=== PATIENT | female | born 1995 | race Caucasian/White ===

== ENCOUNTER 2018-06-04 20:20 | Emergency (ER) | payer BC ==
[~2018-06-04] VITALS: Ht 157.5 cm; Wt 47.0 kg
[2018-06-04 20:22] VITALS: Ht 157.5 cm; Wt 47.0 kg
[2018-06-04] MEDS ORDERED: KETOROLAC 15 MG INJ IV STA (21:48)
[2018-06-04] MEDS ORDERED: SOD CHLORIDE 0.9% 1,000 ML IV STA (21:48)
[2018-06-04] MEDS ORDERED: ONDANSETRON 4 MG INJ IV STA (21:48)
[2018-06-04] MEDS ORDERED: IOHEXOL 300MG/ML 150 ML BTL ONE (22:53)
[2018-06-04] MEDS ORDERED: SOD CHLORIDE 0.9% 100 ML ONE (22:53)
[2018-06-05] MEDS ORDERED: GLYCERIN (ADULT) SUPP PR ONE (00:30)
[2018-06-05] MEDS ORDERED: ACETAMINOPHEN 325 MG TAB PO ONE (00:30)
[2018-06-05] MEDS ORDERED: morphine 4 MG/ML VIAL IV STA (00:45)
--- NOTE | 2018-06-05 01:46 | ERD ---
ER Documentation Chief Complaint Chief Complaint NAUSEA, CHILLS, CONSTIPATION, VOMITING X'S 3 DAYS HPI 22-year-old female presenting to the emergency department complaining of constant right lower quadrant and left lower quadrant abdominal pain for the past 3 days. Pain is sharp in nature. Last bowel movement was reportedly 5 days ago and was normal. Patient also had 2 episodes of nonbilious and nonbloody vomiting today. She took magnesium citrate without relief. She denies any other symptoms at this time. ROS All systems reviewed and are negative except as per history of present illness. Medications Home Meds Active Scripts Acetaminophen* (Tylenol*) 325 Mg Tablet, 2 TAB PO Q6 PRN for PAIN AND OR ELEVATED TEMP, #20 TAB Prov:FAITH MARSHALL PA-C 06/05/18 Cephalexin* (Keflex*) 500 Mg Capsule, 500 MG PO TID for 7 Days, CAP Prov:FAITH MARSHALL PA-C 06/05/18 Docusate Sodium* (Colace*) 100 Mg Capsule, 100 MG PO TID, #30 CAP Prov:FAITH MARSHALL PA-C 06/05/18 Allergies Allergies: Coded Allergies: No Known Allergy (Unverified , 06/05/18) PMhx/Soc Medical and Surgical Hx: pt denies Medical Hx, pt denies Surgical Hx Hx Alcohol Use: No Hx Substance Use: No Hx Tobacco Use: No Smoking Status: Never smoker FmHx Family History: No diabetes Physical Exam Vitals Physical Exam Const: No acute distress Head: Atraumatic Eyes: Normal Conjunctiva ENT: Normal External Ears, Nose and Mouth. Neck: Full range of motion. No meningismus. Resp: Clear to auscultation bilaterally Cardio: Regular rate and rhythm, no murmurs Abd: Soft, tenderness palpation of the right lower quadrant and left lower quadrant, non distended. Normal bowel sounds. No rebound tenderness or guarding. Skin: No petechiae or rashes Back: No midline or flank tenderness Ext: No cyanosis, or edema Neur: Awake and alert Psych: Normal Mood and Affect Results 24 hrs Laboratory Tests Test 06/04/18 22:06 06/04/18 22:41 White Blood Count 13.7 10^3/ul Red Blood Count 5.06 10^6/ul Hemoglobin 13.6 g/dl Hematocrit 42.1 % Mean Corpuscular Volume 83.2 fl Mean Corpuscular Hemoglobin 26.9 pg Mean Corpuscular Hemoglobin Concent 32.3 g/dl Red Cell Distribution Width 15.6 % Platelet Count 294 10^3/UL Mean Platelet Volume 9.2 fl Immature Granulocytes % 0.500 % Neutrophils % 83.0 % Lymphocytes % 11.9 % Monocytes % 4.3 % Eosinophils % 0.1 % Basophils % 0.2 % Nucleated Red Blood Cells % 0.0 /100WBC Immature Granulocytes # 0.070 10^3/ul Neutrophils # 11.3 10^3/ul Lymphocytes # 1.6 10^3/ul Monocytes # 0.6 10^3/ul Eosinophils # 0.0 10^3/ul Basophils # 0.0 10^3/ul Nucleated Red Blood Cells # 0.0 10^3/ul Prothrombin Time 13.7 Sec Prothrombin Time Ratio 1.1 INR International Normalized Ratio 1.04 Activated Partial Thromboplast Time 29.0 Sec Urine Color YELLOW Urine Clarity CLOUDY Urine pH 6.0 Urine Specific [place] 1.014 Urine Ketones 1+ mg/dL Urine Nitrite POSITIVE mg/dL Urine Bilirubin NEGATIVE mg/dL Urine Urobilinogen NEGATIVE mg/dL Urine Leukocyte Esterase NEGATIVE Cinda/ul Urine Microscopic RBC 1 /HPF Urine Microscopic WBC 1 /HPF Urine Squamous Epithelial Cells MODERATE /HPF Urine Mucus FEW /HPF Urine Hemoglobin 1+ mg/dL Urine Glucose NEGATIVE mg/dL Urine Total Protein NEGATIVE mg/dl Sodium Level 143 mmol/L Potassium Level 4.4 mmol/L Chloride Level 108 mmol/L Carbon Dioxide Level 23 mmol/L Anion Gap 12 Blood Urea Nitrogen 11 mg/dl Creatinine 0.65 mg/dl Est Glomerular Filtrat Rate mL/min > 60 mL/min Glucose Level 98 mg/dl Calcium Level 10.0 mg/dl Total Bilirubin 0.8 mg/dl Direct Bilirubin 0.00 mg/dl Indirect Bilirubin 0.8 mg/dl Aspartate Amino Transf (AST/SGOT) 24 IU/L Alanine Aminotransferase (ALT/SGPT) 19 IU/L Alkaline Phosphatase 46 IU/L Total Protein 8.4 g/dl Albumin 4.9 g/dl Globulin 3.50 g/dl Albumin/Globulin Ratio 1.40 Lipase 79 U/L Beta HCG, Quantitative 44.0 mIU/ml POC Beta HCG, Qualitative POSITIVE Current Medications Medications Dose Sig/Ryan Start Time Status Last (Trade) Ordered Route PRN Stop Time Admin Dose Reason Admin Sodium 1,000 ml @ Q1H STAT 06/04/18 DC 06/04/18 Chloride 1,000 mls/hr IV 21:48 22:18 06/04/18 22:47 Ondansetron 4 mg ONCE STAT 06/04/18 DC 06/04/18 HCl (Zofran IV 21:48 22:18 Inj) 06/04/18 21:50 Ketorolac 15 mg ONCE STAT 06/04/18 DC Tromethamine IV 21:48 (Toradol) 06/04/18 21:50 IV Flush 10 ml STK-MED 06/04/18 DC (NS 10 ml) ONCE .ROUTE 22:53 06/04/18 22:54 Sodium 100 ml @ ud STK-MED 06/04/18 DC Chloride ONCE .ROUTE 22:53 06/04/18 22:54 Iohexol 150 ml STK-MED 06/04/18 DC (Omnipaque ONCE .ROUTE 22:53 300mg/ ml) 06/04/18 22:54 Glycerin 1 supp ONCE ONCE 06/05/18 DC 06/05/18 (Glycerin [place] 00:30 01:14 (Adult)) 06/05/18 00:31 650 mg ONCE ONCE 06/05/18 DC 06/05/18 Acetaminophen PO 00:30 00:40 (Tylenol 06/05/18 00:31 Tab) Morphine 4 mg ONCE STAT 06/05/18 DC 06/05/18 Sulfate IV 00:45 01:05 (morphine) 06/05/18 00:46 [place] [address] Radiology Main Line: [phone] DIAGNOSTIC IMAGING REPORT Patient: MYRA BOYCE : 1995 Age: 22 Sex: F MR #: [id number] DOS: 06/04/18 2148 Ordering MD: FAITH MARSHALL PA-C Location: [facility] Room/Bed: PROCEDURE: CT Abdomen and Pelvis with contrast. CLINICAL INDICATION: Abdominal pain with quantitative beta HCG of 44, reporting possible recent spontaneous . TECHNIQUE: CT scan of the abdomen and pelvis with contrast was performed on a multi-detector high-resolution CT scanner. The patient was scanned following the uncomplicated intravenous administration of 100 cc of Omnipaque 300. Coronal and sagittal reformatted images were obtained from the axial source images. Images were reviewed on a high-resolution PACS workstation. The total exam CTDI equals 4.7 mGy and the total exam DLP equals 266.7 mGy-cm. DICOM images are available. One or more of the following dose reduction techniques were utilized: 1.) Automated exposure control 2.) Adjustment of the mA +/- kV according to patient's size 3.) Use of iterative reconstruction technique. COMPARISON: Pelvic ultrasound 06/04/2018. FINDINGS: Partially visualized minimal bibasilar pulmonary subsegmental atelectasis. Heart base appears normal. Systemic vasculature appears grossly normal. No pathologic lymphadenopathy identified by imaging criteria. Nonspecific scattered prominent retroperitoneal lymph nodes measure up to 6 mm short axis periaortic (axial image 73). Liver demonstrates normal size and contour, without identifiable focal mass lesion. Portal vein enhances normally. Gallbladder is mildly distended without identifiable pericholecystic inflammatory change biliary ductal dilatation. Pancreas, spleen and adrenal glands appear normal. Tiny sliding hiatal hernia involving the gastric cardia. Bowel is unobstructed without free air, free fluid or focal mesenteric inflammatory change. Appendix is nondilated. No identifiable significant diverticulosis nor evidence of acute diverticulitis. Large stool burden distending the rectum, possibly reflecting fecal impaction, with associated mild wall thickening and perirectal edema suggestive of stercoral proctitis (axial image 152, sagittal image 63). Proximal to this, there is diffuse colonic distension with fluid and stool. Kidneys perfuse and excrete normally without identifiable focal mass lesion. The ureters run unobstructed to a normal - appearing mildly distended bladder. The uterus is antral flexed, containing some endometrial fluid. Right adnexal peripherally enhancing 1.9 x 1.2 x 1.7 cm focus appears to correspond to the ovarian/para ovarian cyst seen on recent ultrasound, favored to reflect corpus luteum or hemorrhagic cyst although it could reflect ectopic (axial image 137, coronal image 45, sagittal image 52). Trace dependent pelvic free fluid may be reactive or physiologic. Osseous structures are intact with anatomic variant incomplete fusion of the sacral posterior neural arches, and minimal spondylotic changes. Superficial soft tissues and musculature appear normal. IMPRESSION: 1. Findings suggestive of fecal impaction with stercoral proctitis. The bowel is otherwise unobstructed without evidence of perforation or abscess, and the appendix is nondilated. 2. Right adnexal peripherally enhancing focus corresponding to ovarian/para ovarian cyst seen on recent ultrasound, favored to reflect corpus luteum or hemorrhagic cyst although it could represent ectopic . Clinical correlation with serial quantitative beta HCG recommended with consideration for close interval follow-up pelvic ultrasound. 3. Trace dependent pelvic free fluid may be reactive or physiologic. 4. Tiny sliding hiatal hernia. 5. No nephrolithiasis nor hydronephrosis. Findings discussed with and acknowledged by FLIP Thompson at 01:55 a.m. 06/05/2018. RPTAT: HSAN Jarad Valdes, Physician Date Time Electronically viewed and signed by Jarad Valdes, Physician on 06/05/2018 02:06 xN/ CC: FAITH MARSHALL PA-C [id number] [place] [address] Radiology Main Line: [phone] DIAGNOSTIC IMAGING REPORT Patient: MYRA BOYCE : 1995 Age: 22 Sex: F MR #: [id number] DOS: 06/04/18 0000 Ordering MD: FAITH MARSHALL PA-C Location: [facility] Room/Bed: PROCEDURE: US OB. CLINICAL INDICATION: Pelvic pain TECHNIQUE: Transabdominal and transvaginal sonographic evaluation of the uterus was performed. COMPARISON: None. FINDINGS: Uterus is anteverted. No intrauterine fluid collection is seen. No masses are noted. Right ovary measures 4 x 2.3 x 2.7 cm. Left ovary was not visualized on this examination. No suspicious adnexal masses are identified pain There is no free pelvic fluid. IMPRESSION: 1. No visible intrauterine or ectopic . of unknown location. Recommend close follow-up with serial Beta HCG measurements and repeat pelvic sonogram in 7 days to exclude ectopic . RPTAT:HAJM Myra Kaiser Physician Date Time Electronically viewed and signed by Myra Kaiser Physician on 06/05/2018 00:39 RM/ CC: FAITH MARSHALL PA-C [phone] Procedures/MDM 22-year-old female presented to the emergency department complaining of bilateral lower quadrant abdominal pain intermittently for the past 3 days. She also reports constipation. Examination did reveal tenderness to the right lower quadrant and left lower quadrant. Patient was administered IV morphine in the department. Her urine test was found to be incidentally positive. Upon receiving these results, I did order a OB pelvic ultrasound. There is no intrauterine found. Beta hCG was 44. When questioned, the patient did endorse passing a large blood clot during her regular menstrual cycle Approximately 4 days ago. This led me to believe that the patient likely had an , but other differentials included early intrauterine , ectopic and others. Due to the patient's increasing abdominal pain, I did order CT abdomen and pelvis. Patient was counseled regarding risks to early intrauterine and she gave verbal consent prior to the study being ordered. Laboratory studies were notable for slight white blood cell count of 13.7. All other laboratory studies were essentially unremarkable. CT abdomen and pelvis with contrast showed findings consistent with constipation. Full report interpreted by the radiologist may be viewed above. Patient's gastrointestinal symptoms have stabilized while in the department. No evidence of severe dehydration, sepsis, or surgical abdomen. Extensive discussion with family and patient that occult disease cannot be ruled out. 8 hour recheck for repeat abdominal exam is planned. I did discuss case with attending ED physician, Dr. Yolanda Salazar who is in agreement. Departure Diagnosis: Primary Impression: Abdominal pain Condition: Fair Patient Instructions: Abdominal Pain FAITH MARSHALL PA-C Jun 05, 2018 01:46
[2018-06-05] MEDS ORDERED: ACET325T33 PO (02:24)
[2018-06-05] MEDS ORDERED: CEPH-443 PO (02:24)
[2018-06-05] MEDS ORDERED: DOCU-144 PO (02:24)
[2018-06-05 02:42] VITALS: BP 108/53; PULSE 86; RESP 18
== END 2018-06-05 02:43 | disposition home or self-care (01) ==
LOC: FTE 20:20
DX: O26.891 Other specified pregnancy related conditions, first trimester (principal); R10.31 Right lower quadrant pain; R10.32 Left lower quadrant pain; R10.2 Pelvic and perineal pain; Z3A.00 Weeks of gestation of pregnancy not specified
CPT/HCPCS: 51702; 74177; 76801; 76817; 80053; 81001; 81025; 83690; 84702; 85025; 85610; 85730; 96374; 96375; 99285; J2270; J2405; J7030; Q9967; Z7610; J1885